=== PATIENT | female | born 1985 | race Hispanic/Latino ===

== ENCOUNTER 2017-02-11 12:21 | Outpatient (CLI) | payer OTHER ==
[~2017-02-11] VITALS: Ht 157.5 cm; Wt 66.1 kg
[2017-02-11] MEDS ORDERED: PRENTAB9 PO (12:38)
[2017-02-11] MEDS ORDERED: ZANTTAB PO (12:38)
[2017-02-11 12:45] VITALS: BP 99/54
[2017-02-11 14:24] LABS: MEAN CORPUSCULAR HEMOGLOBIN 31.4 pg (27.0-33.0); MEAN CORPUSCULAR HGB CONC 34.3 g/dl (32.0-36.5); MEAN CORPUSCULAR VOLUME 91.6 fl (80.0-96.0); PLATELET COUNT, AUTOMATED 240 10^3/uL (150-450); RED CELL DISTRIBUTION WIDTH 12.8 % (11.5-14.5); WHITE BLOOD COUNT 13.6 10^3/uL (4.0-10.0)
[2017-02-11 14:38] VITALS: BP 102/56
[2017-02-11 15:06] LABS: ALBUMIN 2.9 GM/DL (3.2-5.2); ALBUMIN/GLOBULIN RATIO 0.78 (1.00-1.93); ALKALINE PHOSPHATASE 47 U/L (45-117); ALT/SGPT 19 U/L (12-78); AMYLASE 131 U/L (25-115); ANION GAP 8 MEQ/L (8-16); AST/SGOT 17 U/L (15-37); BILIRUBIN,TOTAL 0.3 MG/DL (0.2-1.0); BLOOD UREA NITROGEN 7 MG/DL (7-18); CALCIUM LEVEL 8.1 MG/DL (8.5-10.1); CARBON DIOXIDE LEVEL 23 MEQ/L (21-32); CHLORIDE LEVEL 107 MEQ/L (98-107); CREATININE FOR GFR 0.49 MG/DL (0.55-1.02); GLOMERULAR FILTRATION RATE > 60.0 (>60); GLUCOSE, FASTING 68 MG/DL (70-105); POTASSIUM SERUM 3.9 MEQ/L (3.5-5.1); SODIUM LEVEL 138 MEQ/L (136-145); TOTAL PROTEIN 6.6 GM/DL (6.4-8.2)
[2017-02-11 15:37] VITALS: BP 114/57
== END 2017-02-11 15:38 | disposition home or self-care (01) ==
LOC: M LDO 12:21
PROVIDERS: ATTEND Obstetrics & Gynecology
DX: O99.89 Other specified diseases and conditions complicating pregnancy, childbirth and the puerperium (principal); R10.9 Unspecified abdominal pain; O21.9 Vomiting of pregnancy, unspecified; Z3A.22 22 weeks gestation of pregnancy

== ENCOUNTER 2017-03-16 10:54 | Outpatient (CLI) | payer OTHER ==
[~2017-03-16] VITALS: Ht 157.5 cm; Wt 67.4 kg
[~2017-03-16 10:54] MED LIST: PRENTAB9 PO; ZANTTAB PO
[2017-03-16 11:16] VITALS: BP 110/59
== END 2017-03-16 11:50 | disposition home or self-care (01) ==
LOC: M LDO 10:54
PROVIDERS: ATTEND Obstetrics & Gynecology
DX: O26.892 Other specified pregnancy related conditions, second trimester (principal); Z3A.27 27 weeks gestation of pregnancy; R10.9 Unspecified abdominal pain

== ENCOUNTER 2017-04-24 03:18 | Outpatient (CLI) | payer OTHER | END 2017-04-24 04:25 | disposition home or self-care (01) | LOC: M LDO 03:18 | DX: O47.9 False labor, unspecified (principal); Z3A.31 31 weeks gestation of pregnancy | CPT/HCPCS: 59025 ==

== ENCOUNTER 2017-05-04 11:23 | Outpatient (CLI) | payer OTHER | END 2017-05-04 13:05 | disposition home or self-care (01) | LOC: M LDO 11:23 | DX: O26.893 Other specified pregnancy related conditions, third trimester (principal); O47.03 False labor before 37 completed weeks of gestation, third trimester; Z3A.34 34 weeks gestation of pregnancy; N89.8 Other specified noninflammatory disorders of vagina | CPT/HCPCS: 59025 ==

== ENCOUNTER 2017-05-27 09:01 | Inpatient (IN) | payer OTHER ==
[2017-05-27] MEDS ORDERED: LR 1,000 ML IV (10:27)
[2017-05-27] MEDS: LACTATED RINGER'S 1000 ML IV (10:59)
[2017-05-27] MEDS: PENICILLIN G POTASSIUM IV 5 MU in D5W MINI-BAG PLUS 100 ML IV (11:08)
[2017-05-27 11:10] LABS: HEMOGLOBIN 12.1 g/dl (12.0-16.0); MEAN CORPUSCULAR HEMOGLOBIN 29.7 pg (27.0-33.0); MEAN CORPUSCULAR HGB CONC 33.6 g/dl (32.0-36.5); MEAN CORPUSCULAR VOLUME 88.2 fl (80.0-96.0); PLATELET COUNT, AUTOMATED 224 10^3/uL (150-450); RED BLOOD COUNT 4.08 10^6/uL (4.00-5.40); RED CELL DISTRIBUTION WIDTH 13.2 % (11.5-14.5)
[2017-05-27] MEDS: OXYTOCIN DRIP 30 UNITS in APPROPRIATE DILUENT 1 EA IV ×2 (14:56→20:38)
[2017-05-27] MEDS: LR 1,000 ML IV (14:56)
[2017-05-27] MEDS ORDERED: FENTANYL 2MCG/ML ROPIVACAINE 0.2% IN 0.9% NACL 200ML IVBAG As Ordered (16:27)
[2017-05-27] MEDS: PENICILLIN G POTASSIUM IV 2.5 MU in APPROPRIATE DILUENT 1 EA IV (16:34)
[2017-05-27] MEDS ORDERED: METOCLOPRAMIDE INJ 10MG/2ML VIAL (J2765) IV (17:45)
[2017-05-27] MEDS ORDERED: ACETAMINOPHEN TAB 650MG DOSE (2X325MG) PO (17:45)
[2017-05-27] MEDS ORDERED: RHOGAM 300 MCG (1500 IU) INJ (J2790) IM (17:45)
[2017-05-27] MEDS ORDERED: DIBUCAINE 1% OINTMENT 30GM TOP (17:45)
[2017-05-27] MEDS ORDERED: MEASLES,MUMPS,RUBELLA VACCINE INJ (MMR-II) (90707) SC (17:45)
[2017-05-27] MEDS ORDERED: NALOXONE INJ 0.4 MG/1 ML VIAL (J2310) IV ×2 (18:00→19:00)
[2017-05-27] MEDS ORDERED: ePHEDrine INJ 50 MG/ML VIAL IV ×2 (18:00→19:00)
[2017-05-27] MEDS ORDERED: EPIDURAL COMMENT XX ×2 (18:00→19:00)
[2017-05-27] MEDS ORDERED: EPIDURAL/PCA KEYS XX ×2 (18:00→19:00)
[2017-05-27] MEDS ORDERED: FENTANYL/ROPIVACAINE/NACL BAG 200 ML EPIDURAL (18:00)
[2017-05-27] MEDS ORDERED: ONDANSETRON 4MG/2ML VIAL (J2405) IV ×2 (18:00→19:00)
[2017-05-27] MEDS ORDERED: REFRIGERATOR IV KEYS XX ×2 (18:00→19:00)
[2017-05-27] MEDS ORDERED: LACTATED RINGER'S 1000 ML IV ×2 (18:00→19:00)
[2017-05-27] MEDS ORDERED: diphenhydrAMINE INJ 50MG/ML VIAL (J1200) IV ×2 (18:00→19:00)
[2017-05-27] MEDS: FENTANYL/ROPIVACAINE/NACL BAG 200 ML EPIDURAL (20:39)
[2017-05-27] MEDS: DOCUSATE SODIUM 100 MG CAP PO (20:39)
[2017-05-28] MEDS: IBUPROFEN 800 MG TAB PO (02:28)
[2017-05-28] MEDS: DOCUSATE SODIUM 100 MG CAP PO ×2 (08:52→22:17)
[2017-05-28] MEDS: PRENATAL VITAMINS CHEWABLE TABLET PO (08:52)
[2017-05-28] MEDS: FENTANYL/ROPIVACAINE/NACL BAG 200 ML EPIDURAL (22:13)
[2017-05-29] MEDS: DOCUSATE SODIUM 100 MG CAP PO (08:38)
[2017-05-29] MEDS: PRENATAL VITAMINS CHEWABLE TABLET PO (08:38)
== END 2017-05-29 11:43 | disposition home or self-care (01) | DRG 775 ==
LOC: M LDO 09:01 → M LDI 10:27 → M OBS 19:10
PROVIDERS: Obstetrics & Gynecology
PROC: 10E0XZZ Delivery of Products of Conception, External Approach (ICD-10-PCS; principal; 2017-05-27)
DX: O99.824 Streptococcus B carrier state complicating childbirth (principal); Z3A.37 37 weeks gestation of pregnancy; Z37.0 Single live birth

== ENCOUNTER 2019-02-11 12:38 | Emergency (ER) | payer OTHER ==
[~2019-02-11] VITALS: Ht 157.5 cm; Wt 64.4 kg
[~2019-02-11 12:38] MED LIST changes: +COLA100C5 PO; +IBUP-1114 PO; +RANI15TA PO; +ZANT150T40 PO; -ZANTTAB PO
[2019-02-11 12:39] VITALS: BP 136/75
[2019-02-11] MEDS ORDERED: KETO10TAB PO ×2 (15:43→16:32)
[2019-02-11] MEDS ORDERED: DIFL150T PO (15:45)
[2019-02-11 16:54] LABS: CHLAMYDIA DNA AMPLIFICATION NEGATIVE (NEGATIVE); GC DNA AMPLIFICATION NEGATIVE (NEGATIVE)
--- NOTE | 2019-02-11 17:49 | REP ---
PELVIS ULTRASOUND: Real-time sonographic evaluation of the pelvis performed utilizing transabdominal and endovaginal technique. The bladder measures 3.6 x 4.3 x 6.8 cm. The uterus measures 8.1 x 4.6 x 5.6 cm. Endometrial thickness is 17 mm. There is no endometrial fluid collection. The right ovary measures 2.6 x 2.2 x 1.7 cm. Left ovary measures 2.2 x 1.4 x 2.0 cm. A complex dominant follicle in the right ovary measures 1.9 x 1.6 x 2.2 cm. There is no other evidence of adnexal mass. There is no torsion with duplex Doppler evaluation. There is trace physiologic amount of free fluid. IMPRESSION: Complex dominant follicle right ovary 2.2 cm. Trace free fluid. No torsion. Electronically Signed by Jw Salazar MD 02/12/2019 11:20 A
== END 2019-02-11 15:53 | disposition home or self-care (01) ==
LOC: M ED 12:38
DX: B37.9 Candidiasis, unspecified (principal); N83.01 Follicular cyst of right ovary; N80.9 Endometriosis, unspecified